=== PATIENT | female | born 1980 | race Caucasian/White ===

== ENCOUNTER 2017-01-20 18:46 | Emergency (ER) ==
[2017-01-20 19:14] VITALS: BP 149/97
--- NOTE | 2017-01-20 19:25 | PROVIDER DOCUMENTATION ---
HPI-Respiratory General - General Chief Complaint: General Adult Stated Complaint: KNOT BEHIND EAR Time Seen by Provider: 01/20/17 19:15 Allergies/Adverse Reactions: Patient Allergies Allergy/AdvReac Type Severity Reaction Status Date / Time alprazolam [From Xanax] Allergy Intermediate HIVES Verified 01/20/17 19:14 hydrocortisone valerate * Allergy HIVES Verified 01/20/17 19:14 [From [facility]] Home Medications: Home Medication List Medication Instructions Recorded Confirmed Last Taken Type Amoxicillin/Potassium Clav 1 each PO BID #20 tablet 01/20/17 Unknown Rx [Augmentin 875-125 Tablet] Prednisone 20 mg PO BID #10 tablet 01/20/17 Unknown Rx Past History - Adult - PAST MEDICAL HISTORY-ADULT Major Childhood Illnesses: reports: denies history Cardiovascular: reports: denies history Respiratory: reports: denies history Gastrointestinal: reports: denies history, obstruction Genitourinary: reports: denies history Musculoskeletal: reports: chronic pain, intervertebral disc disease Neurological: reports: denies history Psychiatric: reports: denies history Endocrine/Immune: reports: denies history Other Conditions: reports: denies history - PRIOR SURGERIES/PROCEDURES Surgical/Procedure History: reports: appendectomy, bowel surgery - PRIOR HOSPITALIZATIONS Prior Hospitalizations: reports: for other non-related - IMMUNIZATION STATUS Childhood Immunizations: UTD Flu Vaccine: See Nurse Assessment - FAMILY HISTORY Family History: reviewed, not pertinent Departure - Departure Time of Disposition Order: 19:20 DIAGNOSIS: Pharyngitis Disposition: HOME 01 Certified Medical Emergency: Emergent Condition: Stable Prescriptions: Amoxicillin/Potassium Clav [Augmentin 875-125 Tablet] 1 each PO BID #20 tablet Prednisone 20 mg PO BID #10 tablet
--- NOTE | 2017-01-20 19:30 | PROVIDER DOCUMENTATION ---
HPI-EENT General - General Chief Complaint: General Adult Stated Complaint: KNOT BEHIND EAR Time Seen by Provider: 01/20/17 19:15 Source: patient Allergies/Adverse Reactions: Patient Allergies Allergy/AdvReac Type Severity Reaction Status Date / Time alprazolam [From Xanax] Allergy Intermediate HIVES Verified 01/20/17 19:14 hydrocortisone valerate * Allergy HIVES Verified 01/20/17 19:14 [From [facility]] Home Medications: Home Medication List Medication Instructions Recorded Confirmed Last Taken Type Amoxicillin/Potassium Clav 1 each PO BID #20 tablet 01/20/17 Unknown Rx [Augmentin 875-125 Tablet] Prednisone 20 mg PO BID #10 tablet 01/20/17 Unknown Rx - History of Present Illness-EENT General Nature of Presenting Problem: PT IS A 36YOF PRESENTING TP ED FOR NECK PAIN. PT STATES THAT SHE SAW PCP BEGINNING OF THE WEEK FOR URI SYMPTOMS AND GIVEN A SHOT AND ANTIBIOTIC FOR HOME. TODAY SHE NOTICED A KNOT ON HER NECK AND C/O TENDERNESS TO THE AREA BUT NO OTHER NEW COMPLAINTS AT THIS TIME. EENT Location: reports: other (RIGHT SIDED KNOT ON NECK) Quality of Pain: reports: aching Severity: reports: moderate Onset/Duration: reports: 1-3 hours ago Timing: reports: still present Prearrival Treatment: Initiated prescription meds (FROM PCP FOR URI) Associated Symptoms: reports: malaise, sinus infection, sore throat. denies: change in hearing, cough, facial pain/swelling Other injuries?: denies: neck, head Locality of Occurance: Home Similar Symptoms Previously?: No Recently seen or treated by another doctor?: Yes (PCP FOR URI) - Throat/Dental Throat/Dental Problem Symptoms: reports: sore throat Throat/Dental Problem Context: denies: recent dental extractions Recently seen a dentist or have an appointment?: No Review of Systems - Adult - REVIEW OF SYSTEMS - ADULT Constitutional: reports: no symptoms reported Eyes: reports: no symptoms reported Ears, Nose, Mouth & Throat: reports: no symptoms reported Cardiovascular: reports: no symptoms reported Respiratory: reports: no symptoms reported Gastrointestinal: reports: no symptoms reported Genitourinary: reports: no symptoms reported Musculoskeletal: reports: no symptoms reported Integumentary: reports: no symptoms reported Neurological: reports: no symptoms reported Psychiatric: reports: no symptoms reported Endocrine: reports: no symptoms reported Hematologic/Lymphatic: reports: see HPI, swollen lymph nodes (CERVICAL, RIGHT MORE THAN LEFT SIDE). denies: lymphedema Allergic/Immunologic: reports: no symptoms reported All Other Systems: Reviewed and Negative Past History - Adult - PAST MEDICAL HISTORY-ADULT Review of Records: reports: Old Records Reviewed, Nursing Assessment Review, Medications Reviewed, Social history reviewed & non-contributory. Major Childhood Illnesses: reports: denies history Cardiovascular: reports: denies history Respiratory: reports: denies history Gastrointestinal: reports: denies history, obstruction Obstetrical/Gynecological: reports: denies history Genitourinary: reports: denies history Musculoskeletal: reports: chronic pain, intervertebral disc disease Neurological: reports: denies history Psychiatric: reports: denies history Endocrine/Immune: reports: denies history Other Conditions: reports: denies history - PRIOR SURGERIES/PROCEDURES Surgical/Procedure History: reports: appendectomy, bowel surgery - PRIOR HOSPITALIZATIONS Prior Hospitalizations: reports: for other non-related - IMMUNIZATION STATUS Childhood Immunizations: UTD, See Nurse Assessment Flu Vaccine: See Nurse Assessment - FAMILY HISTORY Family History: reviewed, not pertinent - SOCIAL HISTORY Smoking: cigarettes, less than 1 pack/day Provider spent 3-5 mins advising pt. on dangers of tobacco.: Discussed manners to quit use, and f/u contacts for add'l counseling. Substance Use: none/never, denies Alcohol Use Frequency: never Living Situation: family Physical Exam- EENT - Physical Exam EENT Initial Vital Signs Reviewed: Yes General Appearance: alert, mild distress, anxious. negative: appears well Eye Exam: bilateral eye: normal inspection, PERRL, EOMI Ear Exam: bilateral ear: auricle normal, canal normal, TM normal Nasal Exam: discharge, sinus tenderness Throat Exam: normal mouth inspection, pharynx normal Neck: full range of motion, supple, other (CERVICAL ADENOPATHY). negative: non- tender, normal inspection Respiratory: chest non-tender, lungs clear, normal breath sounds, no pleuratic chest pain, no respiratory distress, no accessory muscle use Cardiovascular: normal peripheral pulses, regular rate, rhythm, no edema, no gallop, no JVD, no murmur Abdominal Exam: normal bowel sounds, non tender, soft, no organomegaly, no pulsatile mass Lymphatic: cervical node tenderness, enlargement. negative: streaking Back Exam: normal inspection, no CVA tenderness, no vertebral tenderness, CVA tenderness, decreased range of motion Extremity: normal range of motion, non-tender, normal gait, normal inspection, no pedal edema, no calf tenderness, normal capillary refill, pelvis stable Integumentary: normal color, normal turgor, warm/dry Neurologic: citrus picker II-XII nml as tested, grossly normal, no motor/sensory deficits Psych/Mental Status: normal mood/affect, normal thought content, normal thought process, oriented x 3 Progress - PLAN OF CARE/RESULTS Progress/Plan/Lab Results: Vital Signs - 24 hr 01/20/17 19:11 Temperature 98 F Pulse Rate 91 H Respiratory 16 Rate Blood Pressure 149/97 O2 Sat by Pulse 98 Oximetry Departure - Departure Time of Disposition Order: 19:32 DIAGNOSIS: Cervical adenopathy Disposition: HOME 01 Certified Medical Emergency: Emergent Condition: Stable Prescriptions: Amoxicillin/Potassium Clav [Augmentin 875-125 Tablet] 1 each PO BID #20 tablet Prednisone 20 mg PO BID #10 tablet Attestation - Scribe Verification/Attestation Scribe:: Na Rivers Acting as Scribe for:: Messi Terry Scribe documention review:: This chart was documented by a scribe and accurately reflects the service the provider performed and the decisions made by the provider. Physician Attestation - Physician Attestation I, the provider, attest to the following statement:: Messi Terry Physician documentation Attestation:: This documentation recorded by the scribe accurately reflects the service I personally performed and the decisions made by me.
== END 2017-01-20 19:44 | disposition home or self-care (01) ==
LOC: P.ED 18:46
DX: R59.9 Enlarged lymph nodes, unspecified (principal); M54.2 Cervicalgia; R53.81 Other malaise; J02.9 Acute pharyngitis, unspecified; G89.29 Other chronic pain
CPT/HCPCS: 99281